=== PATIENT | male | born 1960 | race Caucasian/White ===

== ENCOUNTER → 2019-07-24 | Outpatient (CLI) | payer BC ==
[~2019-07-24] MED LIST: ALTACE2.5 M1 PO; ALTACE2.5 MG PO; ASPIRIN CHEWABL81 MG PO; ASPIRIN81 MG PO; COQ10 IN OIL 101 SGL PO; COREG6.25 MG PO; CYMBALTA60 MG PO; Carafate1 GM/10 ML PO; EFFIENT10 MG PO; HYDROCODONE BIT1 T11 PO; LIPITOR10 MG PO; LIPITOR40 MG PO; MAPAP325 MG PO; OMEPRAZOLE MAGN20 MG PO; PRILOSEC40 MG PO
--- NOTE | ~2019-07-24 | ST ---
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 PROTOCOL: Exercise SPECT myocardial perfusion imaging, Jasmeet protocol. Baseline EKG shows sinus bradycardia 55 beats per minute with normal axis, normal intervals, without resting ST or T-wave abnormalities. Baseline blood pressure 120/68. The patient exercised for a total of 9 minutes achieving a peak heart rate of 145, which is 90% of predicted maximum. Peak blood pressure was 160/70 mmHg. Total workload achieved was 10 METs, which is average for age. The patient reported no chest pain with exercise. Stress EKG showed occasional PVCs. Otherwise, there was no evidence of ischemia and no arrhythmias were noted. IMPRESSION: 1. No evidence of ischemia on stress EKG. 2. Normal blood pressure response to exercise. 3. Normal heart rate recovery. 4. Average functional capacity. 5. Nuclear images to be reported separately. Dr. SANDRA BRITT MD CM:STRESS:EXERCISE STRESS TEST REPORT [id number] SANDRA BRITT
--- NOTE | 2019-07-24 09:20 | NUR ---
INFORMED SIGNED CONSENT OBTAINED FOR CGXT WITH DR BRITT. RESTING EKG SINUS BRADYCARDIA HR 55 BP 120/68 IN SUPINE POSTION, STANDING HR 62 BP 118/78. PT COMPLETED 9:00 MINUTES OF A RENATO PROTOCOL WITH PT COMPLETED STAGE III AT 3.4 MPH AN DA 14% GRADE. PT REACHED A PEAK HR OF 145 WHICH REPRESENTS 90% OF PREDICTED MAXIMUM AND A PEAK BP OF 160/70. PVC'S NOTED, NO ST CHANGES SEEN. LAST RECOVERY HR OF 90 BP 130/70. PT IN STABLE CONDITION, AWAITING NUCLEAR IMAGES.
== END | disposition home or self-care (01) ==
LOC: CARD 00:26
DX: I25.10 Atherosclerotic heart disease of native coronary artery without angina pectoris (principal)

== ENCOUNTER 2020-04-25 05:07 | Emergency (ER) | payer BC ==
[~2020-04-25] VITALS: Ht 172.7 cm; Wt 87.1 kg
[2020-04-25 05:45] LABS: BASO % 0.4 % (0.0-1.0); EOS # 0.2 10*3/uL (0.0-0.4); EOS % 2.2 % (1.0-4.0); HEMATOCRIT 41.3 % (42.0-52.0); LYMPH # 2.2 10*3/uL (1.3-4.4); LYMPH % 27.7 % (27.0-41.0); MEAN CELL VOLUME 86.9 fl (80.0-94.0); MEAN CORPUSCULAR HGB 29.7 pg (27.0-31.0); MEAN CORPUSCULAR HGB CONC 34.1 g/dl (33.0-37.0); MEAN PLATELET VOLUME 11.8 fl (9.6-12.3); MONO # 0.8 10*3/uL (0.1-1.0); MONO % 10.1 % (3.0-9.0); NEUT # 4.7 10*3/uL (2.3-7.9); NEUT % 59.5 % (47.0-73.0); PLATELET COUNT AUTOMATED 247 10*3/uL (130-400); RED BLOOD COUNT 4.75 10*6/uL (4.50-5.90); RED CELL DISTRI WIDTH 12.3 % (0-14.5); WHITE BLOOD COUNT 7.8 10*3/uL (4.8-10.8)
[2020-04-25 06:02] LABS: ALBUMIN 3.4 gm/dl (3.1-4.5); ALKALINE PHOSPHATASE 80 U/L (45-117); BUN 17 mg/dl (7-24); CHLORIDE 109 mmol/L (98-107); POTASSIUM 4.1 mmol/L (3.5-5.1); SGOT/AST 15 IU/L (3-35); SGPT/ALT 29 U/L (12-78); SODIUM 139 mmol/L (136-145); TOTAL PROTEIN 7.1 gm/dL (6.4-8.2)
[2020-04-25 06:04] LABS: TROPONIN I < 0.015 ng/ml (<0.045)
[2020-04-25 06:13] LABS: ACT PARTIAL THROMBO TIME 23.5 SECONDS (20.0-32.1)
[2020-04-25] MEDS ORDERED: GOOD NEIGHBOR M25 MG PO (07:33)
== END 2020-04-25 08:47 | disposition home or self-care (01) ==
LOC: ED 05:07
PROVIDERS: Emergency Medicine
DX: R42 Dizziness and giddiness (principal); R11.2 Nausea with vomiting, unspecified; Z79.01 Long term (current) use of anticoagulants; Z79.899 Other long term (current) drug therapy; Z79.82 Long term (current) use of aspirin; Z87.891 Personal history of nicotine dependence

== ENCOUNTER → 2020-07-01 | Outpatient (CLI) | payer BC ==
[~2020-07-01] MED LIST changes: +GOOD NEIGHBOR M25 MG PO; -LIPITOR10 MG PO; +NITROSTAT0.4 MG SL
--- NOTE | 2020-07-01 11:15 | NUR ---
INFORMED CONSENT OBTAINED FOR A STANDARD EXERCISE STRESS TEST WITH DR. RUSSO. RESTING EKG NSR WITH A SUPINE HR OF 68 WITH BP OF 144/74 AND HR OF 76 WITH BP OF 120/60 IN STANDING POSITION. PT COMPLETED 9:00 OF A RENATO PROTOCOL WITH COMPLETION OF STAGE III AT 3.4 MPH AND 14% GRADE. REACHED A PEAK HR OF 149 WHICH IS 94% OF PREDICTED MAX AND A PEAK BP OF 190/64. TEST TERMINATED BECAUSE OF FATIGUE. HAD NO CHEST PAIN OR ANY EKG CHANGES. HAS A GOOD EXERCISE TOLERANCE. NEGATIVE STANDARD GXT. LAST RECOVERY HR OF 98 WITH BP OF 170/76. IV DISCONTINUED AND DISCHARGED IN STABLE CONDITION.
== END | disposition home or self-care (01) ==
LOC: CARD 02:40
PROVIDERS: ATTEND Student in an Organized Health Care Education/Training Program
DX: I25.10 Atherosclerotic heart disease of native coronary artery without angina pectoris (principal)

== ENCOUNTER → 2021-06-28 | Outpatient (CLI) | payer BC ==
[2021-06-28 14:11] LABS: CHOLESTEROL 156 mg/dL (<200); LDL CHOLESTEROL 69 mg/dL (9-159); TRIGLYCERIDES 212 mg/dl (<150)
== END | disposition home or self-care (01) ==
LOC: LAB 13:21
PROVIDERS: ATTEND Internal Medicine Cardiovascular Disease
DX: E78.5 Hyperlipidemia, unspecified (principal)

== ENCOUNTER → 2021-07-05 | Outpatient (CLI) | payer BC | END | disposition home or self-care (01) | LOC: CARD 00:10 | PROVIDERS: ATTEND Internal Medicine Cardiovascular Disease | DX: I25.10 Atherosclerotic heart disease of native coronary artery without angina pectoris (principal) ==

== ENCOUNTER → 2022-07-09 | Outpatient (CLI) | payer BC | END | disposition home or self-care (01) | LOC: CARD 06-22 09:00 | PROVIDERS: ATTEND Internal Medicine Cardiovascular Disease | DX: I25.10 Atherosclerotic heart disease of native coronary artery without angina pectoris (principal); Z98.61 Coronary angioplasty status; Z02.4 Encounter for examination for driving license; I25.2 Old myocardial infarction ==